=== PATIENT | male | born 1950 | race Asian ===

== ENCOUNTER → 2016-11-18 | Outpatient (CLI) | payer BC ==
[~2016-11-18] MED LIST: ASPI-650 PO; POTASSIUM PO; TAMS-14 PO
--- NOTE | 2016-11-18 19:05 | RADRPT ---
PROCEDURE: Left knee radiographs. CLINICAL INDICATION: Left knee pain. TECHNIQUE: Four views. Weight bearing. Frontal, lateral, oblique, and patellar view. COMPARISON: No prior studies are available for comparison. FINDINGS: There is no acute fracture or dislocation. There is mild depression of the medial tibial plateau wh ich may be related to prior trauma. The soft tissues are normal. There are degenerative changes with osteophytes arising from all 3 joint compartment margins. There is no joint space narrowing. There is no lytic or blastic lesion. There is no radiopaque foreign body. IMPRESSION: 1. Mild depression of the medial tibial plateau which may be related to prior trauma. 2. Mild degenerative change. 3. Otherwise unremarkable study. RPTAT: QQ .Niraj Gracia MD, MD Date Time Electronically viewed and signed by .Niraj Gracia MD, on 11/18/2016 19:04 .R/
== END | disposition home or self-care (01) ==
LOC: HKI 08:51
PROVIDERS: ATTEND Orthopaedic Surgery
DX: M25.562 Pain in left knee (principal); M25.462 Effusion, left knee
CPT/HCPCS: 20610; 73564; G0463; J1030

== ENCOUNTER 2017-02-12 06:12 | Day surgery (SDC) | payer BC, MEDICARE ==
[~2017-02-12] VITALS: Ht 162.6 cm; Wt 84.0 kg
[2017-02-12] VITALS (17 sets, daily range): BP systolic 72–140; BP diastolic 39–76; PULSE 72–88; RESP 10–27; Ht 162.6 cm; Wt 84.0 kg
--- NOTE | 2017-02-12 06:52 | HPN ---
Date/Time of Note Date/Time of Note DATE: 02/12/17 TIME: 06:52 Interval H&P Admission Note Pt. seen H&P reviewed: No system changes MANDI CAGLE PA-C Feb 12, 2017 06:52
[2017-02-12] MEDS ORDERED: SUCCINYLCHOLINE CHLORIDE 100 MG/5 ML SYG IV ONE (07:00)
[2017-02-12] MEDS ORDERED: LACTATED RINGER'S 1,000 ML IV* SCH (07:00)
[2017-02-12] MEDS ORDERED: LIDOCAINE 2% (SDV) 5 ML INJ ONE (07:00)
[2017-02-12] MEDS ORDERED: CEFAZOLIN 2 GM/50 ML (PMX) 50 ML IVPB SCH (07:00)
[2017-02-12] MEDS ORDERED: CEFAZOLIN 1 GM INJ ONE (07:00)
[2017-02-12] MEDS ORDERED: LOSA1TAB19 PO (07:12)
[2017-02-12] MEDS ORDERED: FINA5TAB4 PO (07:13)
--- NOTE | 2017-02-12 07:41 | RADRPT ---
PROCEDURE: XR Chest. CLINICAL INDICATION: Preoperative TECHNIQUE: Single frontal view of the chest was obtained. COMPARISON: None FINDINGS: The heart is within normal limits. The thoracic aorta is calcified. There is elevation of the right diaphragm. The lungs are clear. There is no pleural effusion or pneumothorax. RPTAT: AA IMPRESSION: No acute disease. Calcified aorta consistent with atherosclerotic disease. .Henri Cat MD, MD Date Time Electronically viewed and signed by .Henri Cat MD, on 02/12/2017 07:41 .S/
[2017-02-12] MEDS ORDERED: LIDOCAINE 1% (MPF) 10 ML INJ ONE (09:03)
[2017-02-12] MEDS ORDERED: TRIAMCINOLONE ACET 40 MG/ML INJ ONE (09:04)
[2017-02-12] MEDS ORDERED: MIDAZOLAM 1 MG/ML 2 ML INJ ONE (09:19)
[2017-02-12] MEDS ORDERED: PROPOFOL 20 ML ONE (09:19)
[2017-02-12] MEDS ORDERED: EPHEDrine SULFATE 50 MG/5 ML SYG ONE ×2 (09:34→11:25)
[2017-02-12] MEDS ORDERED: ONDANSETRON 4 MG INJ ONE (09:58)
[2017-02-12] MEDS ORDERED: KETOROLAC 15 MG INJ IM STA (10:03)
--- NOTE | 2017-02-12 10:03 | SIPON ---
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
[2017-02-12] MEDS ORDERED: HYDROCODONE/APAP (5/325) TAB PO PRN (10:30)
[2017-02-12] MEDS ORDERED: HYDROmorphONE (0.2 MG/ML) 10ML SYG IV PRN (10:30)
[2017-02-12] MEDS: HYDROmorphONE (0.2 MG/ML) 10ML SYG IV PRN ×2 (10:41→11:03)
--- NOTE | 2017-02-12 10:51 | OPR ---
DATE OF OPERATION: 02/12/2017 PREOPERATIVE DIAGNOSIS: Left knee posterior horn medial meniscus tear. POSTOPERATIVE DIAGNOSIS: Left knee posterior horn medial meniscus tear. PROCEDURE PERFORMED: 1. Left knee arthroscopic partial medial meniscectomy. 2. Left knee corticosteroid injection. SURGEON: José Hills MD. PACKAGER MACHINE: ERVIN Salguero. ANESTHESIOLOGIST: Dr. Hunter. ANESTHESIA: General. ESTIMATED BLOOD LOSS: None. COMPLICATIONS: None. SPECIMENS: None. TOURNIQUET TIME: 17 minutes at 250 mmHg. DISPOSITION: To PACU in stable condition. INDICATION FOR PROCEDURE: This is a 66-year-old male with a left knee medial meniscus tear and mech anical symptoms who had failed nonoperative management. The risks, benefits, alternatives of surger y were discussed with the patient and informed consent was obtained. DETAILS OF PROCEDURE: The patient was met in the preoperative suite. The correct operative site wa s confirmed and marked. He was then brought into operating room. After induction of general anesth esia, he was placed in the supine position on the operating room table. A tourniquet was applied to the left upper thigh and the left lower extremity was prepped and draped in the usual sterile fashi on. Before starting, a timeout was taken to identify the correct operative site and confirm the pre operative antibiotics consisting of 2 grams of IV Ancef were administered. At this point, the leg w as then elevated and exsanguinated and the tourniquet was then insufflated for the above noted time. An incision was made for the lateral portal and the arthroscope was then introduced and the patell ofemoral joint was visualized. Chondromalacia of the patellofemoral joint was seen. The arthroscop e was then introduced into the medial gutter. No loose bodies or plica were identified. The arthro scope was then introduced into the medial compartment. The spinal needle was used for determination of the medial portal. A small incision was made and the probe was then inserted into the medial po rtal. A tear of the posterior horn of the medial meniscus was identified. The tear was complex and irreparable. The 4.0 shaver was then introduced, and a partial medial meniscectomy was performed. The arthroscope was then introduced into the intercondylar notch. The anterior and posterior cruci ate ligaments were visualized and noted to be intact. The arthroscope was then introduced into the lateral compartment, no abnormalities were seen. Instruments were removed. There was no breakage p rior to removal of the instruments. An injection of 1 mL of Kenalog along with 1 mL of 1% lidocaine was distilled into the joint. There were no complications. The tourniquet was then deflated. The incisions were closed using 4-0 nylon and sterile dressing followed by a toe to groin VENTURA wrap was applied. The patient was then awakened and taken to postoperative care unit in stable condition. POSTOPERATIVE CARE: He will be weightbearing as tolerated. He will receive medications for pain co ntrol. He was encouraged to frequently flex and extend the ankle. He will be discharged home with followup within 10-14 days. Dictated By: JOSÉ ALEJANDRO/ADAM Conf#: [id number] DID#: [id number]
== END 2017-02-13 09:32 | disposition home or self-care (01) ==
LOC: SDS 06:12
PROVIDERS: ATTEND Orthopaedic Surgery Adult Reconstructive Orthopaedic Surgery
DX: S83.242A Other tear of medial meniscus, current injury, left knee, initial encounter (principal); X58.XXXA Exposure to other specified factors, initial encounter; Y92.89 Other specified places as the place of occurrence of the external cause; Y93.89 Activity, other specified
CPT/HCPCS: 71010; J0690; J1170; J1885; J2250; J2405